=== PATIENT | male | born 1965 | race Caucasian/White ===

== ENCOUNTER 2019-08-03 14:59 | Outpatient (CLI) | payer MEDICARE, MEDICAID, SELFPAY ==
--- NOTE | ~2019-08-03 | XR_ITS ---
EXAMINATION: XR lumbar spine 2-3V DATE: 08/03/2019 15:26 INDICATION: Low back/tailbone pain post fall in May. TECHNIQUE: Anteroposterior and lateral views of the lumbar spine, and cone-down lateral view of the l umbosacral junction were obtained. COMPARISON: CT dated 12/23/2008. FINDINGS: Alignment is normal. Vertebral body heights are normal with chronic Schmorl's node at the superior en dplate of L2. No fractures identified. Mild disc height loss at T11-T12. Lumbar disc heights are norm al with minimal degenerative endplate changes at a few levels. More prominent anterior endplate osteo phyte along the superior endplate of L4. Sacrum and bilateral sacroiliac joints are normal. Unchanged contour to the sacrum and coccyx on the lateral projection. Visualized posterior lung bases are tamar r. IMPRESSION: 1. Minimal degenerative skeletal changes. No acute/subacute osseous abnormality. Reviewed, dictated and finalized at location A. 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 Minimal degenerative skeletal changes. No acute/subacute osseous abnormality .
== END 2019-08-03 15:00 | disposition home or self-care (01) ==
PROVIDERS: PCP Internal Medicine; Visit Provider Nurse Practitioner Family
DX: M54.5 Low back pain (principal)
CPT/HCPCS: 72100

== ENCOUNTER 2020-04-26 14:22 | Outpatient (CLI) | payer MEDICARE, MEDICAID, SELFPAY ==
--- NOTE | ~2020-04-26 | XR_ITS ---
EXAMINATION: XR knee RT min 4V DATE: 04/26/2020 15:06 INDICATION: Right knee pain. Fall. TECHNIQUE: 4 views of right knee were obtained. COMPARISON: None. FINDINGS: Bone alignment is normal. No fracture. There is mild tricompartmental osteoarthritis. No kn ee joint effusion. IMPRESSION: 1. Mild right knee osteoarthritis. Reviewed, dictated and finalized at location A.
== END 2020-04-26 14:23 | disposition home or self-care (01) ==
LOC: CHSIMG 14:25
PROVIDERS: PCP Internal Medicine; Visit Provider Internal Medicine
DX: M25.561 Pain in right knee (principal)
CPT/HCPCS: 73564

== ENCOUNTER 2021-03-15 11:35 | Outpatient (CLI) | payer MEDICARE, MEDICAID, SELFPAY ==
--- NOTE | ~2021-03-15 | CT_ITS ---
EXAMINATION: CT soft tissue neck wo con EXAM DATE: 03/15/2021 12:39 INDICATION: Left supraclavicular mass LT supraclavicular mass with SOB. pt allergic to contrast-leads to anaphylaxis. TECHNIQUE: Spiral CT of the neck was performed without contrast. Axial, coronal and sagittal images were reviewed. The dose-length product (DLP) for this examination was 563.71 mGy-cm. The exposure was tailored according to patient size (auto mA exposure control), and iterative reconstruction (ASIR ) was used as additional dose reduction technique. There is no prior study for comparison. FINDINGS: There is a soft tissue density left supraclavicular region measuring 2.0 x 2.8 cm, probably corresponds to the palpable abnormality. Could be solid mass such as pathologically enlarged lymph n ode, but dilation of a vein is also possible. In the right supraclavicular region there is also simil ar sized region but this appears to be connected to the venous system and is suspected more likely di lation of the vein. Recommend ultrasound of the supraclavicular regions. If there is solid mass, ultr asound-guided biopsy would be appropriate. No internal jugular chain lymphadenopathy. The thyroid gland is unremarkable. The submandibular and parotid glands are symmetric. The superior mediastinum is unremarkable. The airway is unremarkab le. Parapharyngeal and pre-glottic fat planes are preserved. Limited evaluation of cervical vesse ls on this noncontrast study. The orbits are unremarkable. Visualized sinuses and mastoid air florencia ls are well aerated. Lung apices clear. There is cervical spondylosis. IMPRESSION: Focal bilateral supraclavicular soft tissue density regions, differential diagnosis incl uding mass, pathological lymphadenopathy, focal venous dilation. Recommend ultrasound soft tissue nec k for further evaluation. Reviewed, dictated and finalized at location D. IMPRESSION: Focal bilateral supraclavicular soft tissue density regions, diffe rential diagnosis including mass, pathological lymphadenopathy, focal venous di lation. Recommend ultrasound soft tissue neck for further evaluation.
--- NOTE | ~2021-03-15 | XR_ITS ---
EXAMINATION: XR chest 2V 03/15/2021 12:40 INDICATION: Dyspnea. CHF. PROCEDURE: 2 view chest COMPARISON: Comparison to multiple prior studies sequentially, with oldest reviewed study dated 10/2009. FINDINGS: The lungs are clear. Mild cardiomegaly. There are no pleural effusions. There is no pneumo thorax suspected. IMPRESSION: 1: NO ACUTE CARDIOPULMONARY DISEASE. Reviewed, dictated and finalized at location A.
== END 2021-03-15 11:36 | disposition home or self-care (01) ==
PROVIDERS: PCP Internal Medicine; Visit Provider Internal Medicine
DX: R06.00 Dyspnea, unspecified (principal); R22.1 Localized swelling, mass and lump, neck
CPT/HCPCS: 70490; 71046

== ENCOUNTER 2021-03-16 10:12 | Outpatient (CLI) | payer MEDICARE, MEDICAID, SELFPAY | END 2021-03-16 10:13 | disposition home or self-care (01) | LOC: CHSCARD 10:14 | PROVIDERS: PCP Internal Medicine; Visit Provider Internal Medicine | DX: R22.1 Localized swelling, mass and lump, neck (principal); R06.00 Dyspnea, unspecified | CPT/HCPCS: 94060; 94726; 94729 ==

== ENCOUNTER 2021-04-02 12:26 | Outpatient (CLI) | payer MEDICARE, OTHER, SELFPAY ==
--- NOTE | ~2021-04-02 | US_ITS ---
EXAMINATION: US soft tissue head and neck DATE: 04/02/2021 13:04 INDICATION: Left supraclavicular mass on prior CT TECHNIQUE: Multiple grayscale and Doppler ultrasound images of the region of concern at the base of t he left neck and left supraclavicular region were obtained. COMPARISON: CT dated 03/15/2021 FINDINGS: There appears to be focal mild dilation of the left subclavian vein near where it crosses over the an terior first ribs with similar location and appearance as the mass of concern on the prior CT. No oth er abnormal masses or pathologically enlarged lymphadenopathy. IMPRESSION: 1. . Mild dilation of the left subclavian vein where it passes anterior to the anterior left first ri b which likely accounts for the masslike density on prior CT. No other abnormal masses, fluid collect ions or pathologically enlarged lymphadenopathy at the region of concern. Reviewed, dictated and finalized at location B. IMPRESSION: 1. . Mild dilation of the left subclavian vein where it passes anterior to the anterior left first rib which likely accounts for the masslike density on prior CT. No other abnormal masses, fluid collections or pathologically enlarged lym phadenopathy at the region of concern.
== END 2021-04-02 12:27 | disposition home or self-care (01) ==
PROVIDERS: PCP Internal Medicine; Visit Provider Internal Medicine
DX: R22.1 Localized swelling, mass and lump, neck (principal)
CPT/HCPCS: 76536

== ENCOUNTER 2021-05-11 13:36 | Outpatient (CLI) | payer OTHER, SELFPAY ==
--- NOTE | ~2021-05-11 | XR_ITS ---
MODIFIED ESOPHAGRAM HISTORY: Dysphagia. TECHNIQUE: Modified barium esophagram was performed by speech pathologist under radiologist fluorosco pic guidance. This was recorded on tape. The exam was reviewed on 05/11/2021 14:36 HAND NAILER. The DAP fo r this procedure was 2.18 Gycm2. Fluoroscopy time is 1.1 minutes. FINDINGS: Lateral projection of the cervical spine demonstrates normal alignment. There is normal s wallowing function without evidence for penetration or aspiration.. IMPRESSION: 1: Normal swallowing function without penetration or aspiration. 2: Please refer to speech pathologist report for additional detail. Reviewed, dictated and finalized at location A. NAILER
--- NOTE | 2021-05-11 14:34 | STOPEVAL ---
MODIFIED BARIUM SWALLOW EVALUATION: Thank you for referring Max Bennett to [facility] Attending Provider: Logan Lucas MD Outpatient Past Medical History Past Medical History Source of Past Medical History Patient Respiratory History Hx Chronic Obstructive Pulmonary Disease Yes (COPD) Hx Sleep Apnea Yes Hx Other Respiratory Disorders Yes: uses CPAP Gastrointestinal History Hx Other Gastrointestinal Disorders Yes: pt reports choking during the night Modified Barium Swallow Evaluation Recent Swallowing History Reports Dysphagia Yes: reports dysphagia -- chokes at night Duration of Dysphagia 6 months ago but worse in the last 4 months Other Factors Impacting Dysphagia None History of Pneumonia No Reported Difficult Consistencies Unable to Identify Intake Method Prior to Swallow Oral Evaluation Diet Prior to Swallow Evaluation Regular, Level 7 Liquid Consistency Prior to Swallow Thin (0) Evaluation Consistency Solid Consistency Other Amount cracker Method of Presentation Spoon Oral Preparatory Symptoms None Oral Phase Symptoms None Pharyngeal Phase Symptoms None Severity of Vallecular Residue None - 0% No Residue Severity of Pyriform Sinus Residue None - 0% No Residue 8 Point Laryngeal Penetration-Aspiration Material Does Not Enter Airway Scale Cervical/Esophageal Symptoms None Mixed Consistency Method of Presentation Spoon Oral Preparatory Symptoms None Oral Phase Symptoms None Pharyngeal Phase Symptoms None Severity of Vallecular Residue None - 0% No Residue Severity of Pyriform Sinus Residue None - 0% No Residue 8 Point Laryngeal Penetration-Aspiration Material Does Not Enter Airway Scale Cervical/Esophageal Symptoms None Pureed Consistency Method of Presentation Spoon Oral Preparatory Symptoms None Oral Phase Symptoms None Pharyngeal Phase Symptoms Within Functional Limits Severity of Vallecular Residue None - 0% No Residue Severity of Pyriform Sinus Residue None - 0% No Residue Pharyngeal Phase Comments trace backflow from region of UES; contents was a trace amount and did not re enter the pharynx Cervical/Esophageal Symptoms Within Functional Limits Thin Uncontrolled 1 Other Amount cup and straw Oral Preparatory Symptoms None Oral Phase Symptoms None Pharyngeal Phase Symptoms None Severity of Vallecular Residue None - 0% No Residue Severity of Pyriform Sinus Residue None - 0% No Residue 8 Point Laryngeal Penetration-Aspiration Material [place]
== END 2021-05-11 13:37 | disposition home or self-care (01) ==
LOC: ANHIMG 13:39
PROVIDERS: PCP Internal Medicine; Visit Provider Otolaryngology
DX: R13.10 Dysphagia, unspecified (principal)
CPT/HCPCS: 92611

== ENCOUNTER 2021-10-22 16:39 | Emergency (ER) | payer OTHER, SELFPAY ==
[2021-10-22 16:45] VITALS: BP 146/95; PULSE 94; RESP 18; TEMP 36.4; O2SAT 100
--- NOTE | 2021-10-22 16:48 | ED.SKABFB ---
HPI - Skin/Abscess/Foreign Bdy General Chief complaint: Skin/Abscess/Foreign Body Stated complaint: infected cyst on back Time Seen by Provider: 10/22/21 16:48 Source: patient and RN notes reviewed History of Present Illness HPI narrative: Patient is a 55-year-old male who presents the urgent care with complaints of a infected cyst on the back. Patient states that he noticed the increased pain and redness on Friday and he has been monitoring the redness. Patient denies of any nausea, vomiting, fever. Patient states that he has had the cyst for some time and they will not remove it due to his increase in blood thinners. No other acute complaints. No acute distress noted. Patient aware of the plan of care. Some parts of this dictation were generated by voice recognition software and may contain typographical and/or grammatical inaccuracies. Related Data Home Medications Medication Instructions Recorded Confirmed apixaban 5 mg tablet 5 mg PO BID 04/23/21 10/22/21 buspirone 10 mg tablet 10 mg PO BID 04/23/21 10/22/21 diltiazem HCl 240 mg 240 mg PO DAILY 04/23/21 10/22/21 capsule,extended release 24 hr, controlled duloxetine 30 mg capsule,delayed 30 mg PO BID 04/23/21 10/22/21 release fluticasone 250 mcg-salmeterol 50 1 inh INHALATION BID 04/23/21 10/22/21 mcg/dose blistr powdr for inhalation losartan 25 mg tablet 25 mg PO DAILY 04/23/21 10/22/21 metoprolol succinate 100 mg 100 mg PO BID 04/23/21 10/22/21 tablet,extended release 24 hr montelukast 10 mg tablet 10 mg PO DAILY 04/23/21 10/22/21 omeprazole 40 mg capsule,delayed 40 mg PO DAILY 04/23/21 10/22/21 release tamsulosin 0.4 mg PO DAILY 10/22/21 10/22/21 Allergies Allergy/AdvReac Type Severity Reaction Status Date / Time iodine Allergy Unknown Anaphylaxis Verified 10/22/21 16:50 amoxicillin AdvReac Other Verified 10/22/21 16:51 Review of Systems Review of Systems: CONSTITUTIONAL: Denies fever, chills, or sweats. EYES: Denies visual changes, redness, or discharge. ENT: Denies rhinorrhea, congestion, sore throat, or otalgia. CARDIOVASCULAR: Denies chest pain, palpitations, or edema. RESPIRATORY: Denies cough or dyspnea. GASTROINTESTINAL: Denies abdominal pain, nausea, vomiting, or diarrhea. GENITOURINARY: Denies dysuria or hematuria. SKIN: Reports of an infected cyst on the back MUSCULOSKELETAL: Denies back pain, joint pain, or myalgia. NEUROLOGIC: Denies headache, numbness, or weakness. All other systems reviewed are negative, except as documented in HPI. [facility] Family History Family History Father Skin cancer Mother Bone cancer Social History Social History (System 05/11/21 @ 15:06 by Shelia Black) Smoking status: Never smoker Alcohol intake: never Substance use: never Substance use type: does not use Comments At the time of my signature, I reviewed and agree with the nursing past medical, surgical, social, and family history. There is no relevant family history pertinent to the patient complaint. Exam Narrative: GENERAL: This is a well-nourished, well-developed patient, in no apparent distress. HEAD: normocephalic, atraumatic. EYES: PERRL. Sclera clear/white. Vision is grossly intact. EARS: External ears normal NOSE: External nose normal with no obvious nasal discharge, nares without redness, no rhinorrhea. THROAT: Mucous membranes moist NECK: Neck supple CARDIOVASCULAR: Atrial fibrillation SKIN: 7 x 7 firm deep sebaceous cyst with a 4 x 5 cm erythemic firm center. Nonraised off the center upper back. NEURO: awake, alert, and oriented to person, place and time. There were no obvious focal neurologic abnormalities. EXTREMITIES: No clubbing, cyanosis, or edema. Course Course Level of Care: Express Care Visit Vital Signs Vital signs: Vital Signs Temperature 97.5 F L 10/22/21 16:45 Pulse Rate 94 10/22/21 16:45 Respiratory Rate 18 10/22/21 16:45 Blood
== END 2021-10-22 17:00 | disposition home or self-care (01) ==
PROVIDERS: Emergency Provider Nurse Practitioner Family
DX: L02.212 Cutaneous abscess of back [any part, except buttock and flank] (principal); I48.91 Unspecified atrial fibrillation; J44.9 Chronic obstructive pulmonary disease, unspecified; G47.30 Sleep apnea, unspecified
CPT/HCPCS: 99213; G0463

== ENCOUNTER 2022-05-24 14:07 | Emergency (ER) | payer MEDICARE, MEDICAID, SELFPAY ==
--- NOTE | 2022-05-24 14:40 | ED.URI ---
HPI - URI/Sore Throat General Chief Complaint: Upper Respiratory Infection Stated Complaint: Chest Congestion/Dizziness Time Seen by Provider: 05/24/22 15:00 Source: patient Mode of arrival: ambulatory Limitations: no limitations History of Present Illness HPI Narrative: Mr. Bennett is a 56-year-old male patient presenting to clinic today with complaints of chest congestion,cough, nausea, vomiting, body aches since Friday. He reports He has not vomited for 2 days however he has had some head congestion. MD elicited complaint: sore throat and nasal congestion Related Data Home Medications Medication Instructions Recorded Confirmed apixaban 5 mg tablet (Eliquis) 5 mg PO BID 04/23/21 05/24/22 buspirone 10 mg tablet 10 mg PO BID 04/23/21 05/24/22 diltiazem HCl 240 mg 240 mg PO DAILY 04/23/21 05/24/22 capsule,extended release 24 hr, controlled duloxetine 30 mg capsule,delayed 30 mg PO BID 04/23/21 05/24/22 release fluticasone 250 mcg-salmeterol 50 1 inh inhalation BID 04/23/21 05/24/22 mcg/dose blistr powdr for inhalation (Advair Diskus) losartan 25 mg tablet 25 mg PO DAILY 04/23/21 05/24/22 metoprolol succinate 100 mg 100 mg PO BID 04/23/21 05/24/22 tablet,extended release 24 hr montelukast 10 mg tablet 10 mg PO DAILY 04/23/21 05/24/22 omeprazole 40 mg capsule,delayed 40 mg PO DAILY 04/23/21 05/24/22 release tamsulosin 0.4 mg capsule 0.4 mg PO DAILY 10/22/21 05/24/22 Allergies Allergy/AdvReac Type Severity Reaction Status Date / Time iodine Allergy Unknown Anaphylaxis Verified 05/24/22 14:51 amoxicillin AdvReac Other Verified 05/24/22 14:51 Review of Systems Review of Systems: Pertinent positives per HPI. Patient denies any fever, chills, rash, visual changes, dizziness,shortness of breath, chest pain, palpitations, diarrhea, constipation, abdominal pain, or any urinary issues. [facility] Family History Family History Father Skin cancer Mother Bone cancer Social History Social History Smoking status: Never smoker Alcohol intake: never Substance use: never Substance use type: does not use Comments At the time of my signature, I reviewed and agree with the nursing past medical, surgical, social, and family history. There is no relevant family history pertinent to the patient complaint. Exam Narrative: General: Well-developed, obese, in no apparent distress Head: Normocephalic, atraumatic Eyes: Pupils equally round and reactive to light bilaterally, EOM intact, sclera and conjunctive clear, no discharge, lids normal Ears: TMs intact and clear, ear canals clear, no drainage, grossly hearing normal. Nose: Nares patent, clear nasal discharge, no inflammation, no sinus tenderness. Mouth: Oral pharynx without lesions or masses, good dentition, MMM. oropharynx red Neck: Supple, trachea midline, no enlargement of anterior or posterior cervical nodes, no thyroid masses or goiter palpable. Cardio: Regular rate and rhythm, s1 and s2 normal, no murmur appreciated. Resp: faint expiratory wheeze in the right lower lung field otherwise clear, no rhonchi, rales, wheezing or rubs Course Course Emergency Course: Portions of this record may have been created with voice recognition software. Level of Care: Express Care Visit Vital Signs Vital signs: Vital Signs Temperature 36.8 C 05/24/22 14:54 Pulse Rate 113 H 05/24/22 14:54 Respiratory Rate 20 05/24/22 14:54 Blood Pressure 87/58 L 05/24/22 14:54 Pulse Oximetry 98 05/24/22 14:54 Oxygen Delivery Room Air 05/24/22 14:54 Temperature 36.8 C 05/24/22 14:54 Pulse Rate 113 H 05/24/22 14:54 Respiratory Rate 20 05/24/22 14:54 Blood Pressure 90/50 L 05/24/22 15:32 Pulse Oximetry 98 05/24/22 14:54 Oxygen Delivery Room Air 05/24/22 14:54 Vital signs reviewed MDM - URI/Sore Thro
[2022-05-24 14:54] VITALS: BP 87/58; PULSE 113; RESP 20; TEMP 36.8; O2SAT 98
--- NOTE | 2022-05-24 15:19 | ECG_ITS ---
Measurements Intervals [place] Rate: 79 P: GA: 0 QRS: 6 QRSD: 97 T: 19 QT: 378 QTc: 434 Interpretive Statements ATRIAL FIBRILLATION BASELINE ARTIFACT- I, II, III, AVR, AVL, AVF ABNORMAL ECG NO PREVIOUS ECG AVAILABLE FOR COMPARISON Electronically Signed On 05-24-2022 16:05:25 SHIFT SUPERVISOR MELTING by Ross Jalloh D.O.
[2022-05-24 15:32] VITALS: BP 90/50
== END 2022-05-24 16:20 | disposition home or self-care (01) ==
PROVIDERS: Emergency Provider Nurse Practitioner Family
DX: J10.1 Influenza due to other identified influenza virus with other respiratory manifestations (principal); E86.0 Dehydration; I95.9 Hypotension, unspecified; Z20.822 Contact with and (suspected) exposure to COVID-19
CPT/HCPCS: 87426; 87804; 93005; 99213; C9803; G0463

== ENCOUNTER 2022-11-06 17:00 | Outpatient (CLI) | payer MEDICARE, MEDICAID, SELFPAY ==
--- NOTE | ~2022-11-06 | XR_ITS ---
EXAMINATION: XR chest 2V Exam Date/Time: 11/06/2022 17:10 CDT HISTORY: dyspnea AND RIGHT SIDE CP X 4 DAYS Comparison: 03/15/2021. RESULT: Lines, tubes, and devices: None. Lungs and pleura: Minimal bibasilar scar/atelectasis, otherwise clear. Cardiomediastinal silhouette: Stable. Other: No acute osseous or upper abdominal finding. IMPRESSION: No acute cardiopulmonary process. Reviewed, dictated and finalized at location K.
[2022-11-06 17:31] LABS: Basophils Absolute Auto 0.07 K/mm3 (0.00-0.10); Basophils Percent Auto 0.8 % (0.0-1.0); Eosinophils Absolute Auto 0.11 K/mm3 (0.02-0.50); Eosinophils Percent Auto 1.3 % (1.0-6.0); Hematocrit 45.2 % (40.0-54.0); Hemoglobin 14.9 g/dL (14.0-18.0); Immature Granulocyte Absolute 0.05 K/mm3 (0.00-0.00); Immature Granulocyte Percent A 0.6 % (0.0-0.0); Lymphocytes Absolute Auto 4.16 K/mm3 (1.10-4.50); Lymphocytes Percent Auto 47.6 % (18.0-42.0); Mean Corpuscular Hemoglobin 29.6 pg (27.0-31.0); Mean Corpuscular Volume 89.7 fL (78.0-102.0); Mean Platelet Volume 12.1 fl (8.7-11.0); Monocytes Absolute Auto 0.66 K/mm3 (0.10-0.90); Monocytes Percent Auto 7.6 % (2.0-11.0); Neutrophils Absolute Auto 3.7 K/mm3 (1.7-7.2); Neutrophils Percent Auto 42.1 % (50.0-70.0); Platelet Count Result 217 K/mm3 (150-420); Red Blood Count 5.04 M/mm3 (4.70-6.10); Red Cell Distribution Width 13.2 % (11.6-14.4); White Blood Count 8.7 K/mm3 (4.8-10.8)
[2022-11-06 17:44] LABS: D Dimer 0.19 mg/L (0.19-0.50)
[2022-11-06 18:28] LABS: Alanine Aminotransferase 26 U/L (16-63); Albumin Level 3.7 g/dL (3.4-5.0); Alkaline Phosphatase 98 U/L (46-116); Anion Gap 9 mmol/L (8-16); Aspartate Amino Transferase 13 U/L (15-37); Bilirubin,Total 0.6 mg/dL (0.00-1.00); Blood Urea Nitrogen 13 mg/dL (7-18); Calcium 9.1 mg/dL (8.5-10.1); Carbon Dioxide 29 mmol/L (21-32); Chloride 104 mmol/L (98-108); Creatine Kinase 61 U/L (39-308); Estimated Glomerular Filt Rate 58; Glucose 161 mg/dL (70-99); Osmolality Calculated 297 mOsm/kg (285-295); Potassium 4.3 mmol/L (3.5-5.1); Sodium 142 mmol/L (136-145); Troponin I 4.4 ng/L (0.00-60.4)
== END 2022-11-06 17:01 | disposition home or self-care (01) ==
LOC: CHSIMG 17:02
PROVIDERS: PCP Internal Medicine; Visit Provider Internal Medicine
DX: R06.00 Dyspnea, unspecified (principal); R07.9 Chest pain, unspecified
CPT/HCPCS: 36415; 71046; 80053; 82550; 82553; 84484; 85025; 85380

== ENCOUNTER 2023-01-17 10:45 | Outpatient (CLI) | payer MEDICARE, MEDICAID, SELFPAY ==
--- NOTE | ~2023-01-17 | CT_ITS ---
CT Scan of the Chest without Contrast: Clinical Indication: Lung cancer screening, personal history of nicotine dependence Technique: Contiguous sections were acquired throughout the chest without intravenous contrast. Dose reduction technique was used on this scan by utilizing automated exposure control and iterative recon struction technique. The dose-length product (DLP) was 664.01 mGy-cm. Findings: There is no evidence of any significant mediastinal, hilar or axillary lymphadenopathy. The mediastin al soft tissues appear normal. There is no evidence of pleural or pericardial effusion. Calcified right lower lobe granuloma present. No other pulmonary nodule identified.. Images through the upper abdomen reveal no abnormalities. Impression: Lung RADS 2: Benign appearance. 12 month follow-up screening CT advised. Reviewed, dictated and finalized at [facility]. Impression: Lung RADS 2: Benign appearance. 12 month follow-up screening CT advised.
== END 2023-01-17 10:46 | disposition home or self-care (01) ==
PROVIDERS: PCP Internal Medicine; Visit Provider Internal Medicine Pulmonary Disease
DX: Z12.2 Encounter for screening for malignant neoplasm of respiratory organs (principal); Z87.891 Personal history of nicotine dependence
CPT/HCPCS: 71271

== ENCOUNTER 2023-01-28 16:16 | Outpatient (CLI) | payer MEDICARE, MEDICAID, SELFPAY ==
--- NOTE | ~2023-01-28 | XR_ITS ---
EXAM: XR knee LT 3V DATE: 01/28/2023 16:32 HISTORY: left knee pain X 20 YEARS/NO TRAUMA . COMPARISON: 09/17/2013. FINDINGS: Normal mineralization. No fracture or dislocation. No lytic or blastic lesion. Severe medi al joint space narrowing. Moderate medial and lateral and mild neural foraminal compartment osteophyt osis. No erosion or periosteal change. Soft tissue varicosities. IMPRESSION: Tricompartmental left knee osteoarthritis, severe in the medial compartment. Reviewed, dictated and finalized at location K. IMPRESSION: Tricompartmental left knee osteoarthritis, severe in the medial com partment.
== END 2023-01-28 16:17 | disposition home or self-care (01) ==
PROVIDERS: PCP Internal Medicine; Visit Provider Internal Medicine
DX: M25.562 Pain in left knee (principal); M17.12 Unilateral primary osteoarthritis, left knee
CPT/HCPCS: 73562

== ENCOUNTER 2023-03-05 14:28 | Outpatient (CLI) | payer MEDICARE, MEDICAID, SELFPAY ==
[2023-03-05 14:30] VITALS: PULSE 85; O2SAT 96
[2023-03-05 14:35] VITALS: PULSE 99; O2SAT 96
[2023-03-05 14:45] VITALS: PULSE 89; O2SAT 97
--- NOTE | 2023-03-05 14:53 | HOMEO2EVAL ---
Evaluation was performed at [facility] Home Oxygen Evaluation RC: Home Oxygen (O2) Evaluation Start: 03/05/23 14:52 Freq: Status: Active Protocol: RPE Activity Type Activity Date Activity User E-sign Co-sign Detail Recorded Client Recorded Date Recorded By Document 03/05/23 14:30 DJO [email or web address] 03/05/23 14:53 DJO Document 03/05/23 14:35 [email or web address] [email or web address] 03/05/23 14:53 DJO Document 03/05/23 14:45 [email or web address] [email or web address] 03/05/23 14:53 DJO 03/05/23 03/05/23 03/05/23 14:30 14:35 14:45 Home O2 Evaluation [Oxygen] -Test Phase Resting Exercise Resting -Oxygen Delivery Room Air Room Air Room Air [Pulse Oximetry] -Pulse Oximetry (90-100 %) 96 96 97 [Pulse Rate] -Pulse Rate (60-100 beats/min) 85 99 89 [Evaluation] -Activity Tolerance Good [Charges] -Treatment Charges O2 Evaluation - Outpatient
--- NOTE | 2023-03-06 09:19 | WPDPFTINT ---
PFT Procedure Performed PFT Procedure Performed Spirometry with Pre/Post Bronchodilator Plethysmography (Lung Vol) Diffusing Cap (DLCO) Flow Vol Loop PFT Interpretation Lung volumes were measured with the body plethysmography. The diminished total lung capacity is indicative of a restrictive respiratory disease. Spirometry showed diminished expiratory flow rates and a diminished FEV1 to FVC ratio 59%, indicative of obstructive airway disease. Following administration of a bronchodilator there was no significant increase in expiratory flow rates. Lung diffusion capacity is within the normal range at 90% predicted. The flow-volume loop is consistent with obstructive airway disease. Impression: Combined restrictive respiratory and obstructive airway disease with no response to bronchodilators on this testing. Lung diffusion capacity within the normal range.
== END 2023-03-05 14:29 | disposition home or self-care (01) ==
LOC: ANHPFT 14:30
PROVIDERS: PCP Internal Medicine; Visit Provider Internal Medicine Pulmonary Disease
DX: J44.9 Chronic obstructive pulmonary disease, unspecified (principal); R94.2 Abnormal results of pulmonary function studies
CPT/HCPCS: 94060; 94618; 94726; 94729

== ENCOUNTER 2024-02-16 14:00 | Outpatient (RCR) | payer MEDICARE, MEDICAID, SELFPAY ==
--- NOTE | 2023-12-04 11:53 | WPDSLSEVAL ---
[facility] HPI HPI Referral Source PCP Visit Attended By patient and staff History Obtained From patient Chief Complaint depression and anxiety History of Present Illness This is a 58-year-old white male with a long history of depression, currently being treated by his PCP, Dr. Atkins, who has him on Cymbalta 30 mg b.i.d. and BuSpar 15 mg b.i.d., both of which he has been on for a few years. Patient has never seen a psychiatrist. 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 There have been times when she has been severely cognitively impaired, but he states that this is somewhat improved. However she is unable to walk and he has to assist her with basic tasks such as bathing and toileting. He reports depressed and anxious mood, loss of interest in things, low energy, low self-esteem, difficulty concentrating, hopelessness, passive suicidal ideations but no active intent or plan. He does have a history of suicide attempt in 1993. Also he has sleep apnea, and sleeps well with CPAP. Denies terrie, but does admit to occasionally feeling somewhat paranoid when he is driving, and often makes erratic turns if he thinks they are following him. This is not happened for some time. He also denies homicidal ideations. He says in the past he thought that the government was tracking him in some way, but denies that this is currently the case. HPI: Quality & Associated Signs and Symptoms hopelessness/helpless, anxiety/panic attacks, low motivation, overwhelmed, worthlessness, low energy, suicidal/self-harm thoughts and negative thoughts Evaluation of Sleep restlessness Past History Psychosocial Hx: Patient grew up in [place]. He denies any history of abuse or neglect, but said his family was poor. Overall he feels he had a good childhood. 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 He had to go on disability 2010 due to persistent atrial fibrillation. 25 years, no children. Substance Use Hx: Currently denies any alcohol use for the past 25 years, although a note from PCP 1 week ago says that he admits to drinking about a six-pack a week. Used to drink heavily in the past, around 25-30 years ago.Used to smoke, stopped smoking about 15 years ago, smoked for 15 years. Denies current marijuana use. Denies illicit drug use. Past Medical Hx: Morbid obesity, chronic atrial fibrillation, congestive heart failure, cardiomyopathy, osteoarthritis, chronic pain, MARTIN, history of bladder cancer, dyslipidemia, gout, GERD, type 2 diabetes, COPD, herpes zoster, erectile dysfunction, colon polyps, hypertension, chronic anticoagulation Past Surgical Hx: left inguinal hernia repair x3, left ankle ORIF Past Psych Hx: as per HPI. Patient had a suicide attempt by alcohol in the early 90s. Father had Parkinson's, but no other family history of psychiatric illness. Review of Systems Review of Systems Constitutional Reports fatigue ( Morbid obesity, dyslipidemia, arc-jqqdahu-ibarvtkeq diabetes mellitus) Eyes Reports WNL ENT Reports WNL Respiratory Reports other ( COPD, MARTIN) Cardiovascular Reports other ( CHF, cardiomyopathy, atrial fibrillation, HTN, chronic anticoagulation) Gastrointestinal Reports other ( GERD) Musculoskeletal Reports abnormal gait and Reports other ( osteoarthritis, chronic pain) Neurologic Reports WNL Skin Reports WNL ADL's Reports independent Exam Physical Exam Review of Lab Studies n/a Hygiene poor and disheveled General Behavior/Attitude Toward Examiner pleasant and cooperative Pain Yes Pain Location generalized Pain Characteristics chronic Psychiatric Exam
--- NOTE | 2023-12-04 14:13 | PC.NURSE ---
Called [facility] in [place] and spoke to Dexter to increase the patient's Duloxetine to 90mg PO daily.
[2023-12-09 10:04] VITALS: BP 116/88; PULSE 82; RESP 20; TEMP 37; O2SAT 97
[2023-12-10 10:10] VITALS: BP 136/88; PULSE 82; RESP 20; TEMP 36.9; O2SAT 97
[2023-12-15 10:10] VITALS: BP 123/78; PULSE 88; RESP 20; TEMP 37.1; O2SAT 97
--- NOTE | 2023-12-18 08:21 | SLSTHERAPY ---
12/18/2023 Phone call received from Max canceling 12/18/2023 group attendance due to cat's ; Max is scheduled to return to group 12/23/2023. 8:22
--- NOTE | 2023-12-22 09:29 | SLSTHERAPY ---
12/22/2023 Phone call received from Max canceling 12/21 & 12/25 2023 group attendance due to illness; Max is scheduled to return to group 12/29/2023. 9:31
--- NOTE | 2023-12-30 09:13 | SLSTHERAPY ---
12/30/2023 Phone call received from Max cancelling group attendance for 12/29 & 12/31/2023 due to illness; Max is scheduled to return to group 01/05/2024. 9:14
--- NOTE | 2024-01-05 09:23 | SLSTHERAPY ---
01/05/2024 Phone call received from Max canceling 01/05/2024 due to illness; Max reminded of 01/08/2024 [facility] doctor appointment; he confirmed intent to attend. 9:25
[2024-01-08 10:09] VITALS: BP 130/88; PULSE 84; RESP 20; TEMP 36.7; O2SAT 98
--- NOTE | 2024-01-08 10:10 | PC.NURSE ---
No nursing group due to MD visit.
--- NOTE | 2024-01-08 12:19 | WPDSLSPROGRE ---
Progress HPI Progress HPI Visit Attended By patient and staff History Obtained From patient Chief Complaint follow-up from admission HPI this is a 5 week follow-up from admission. Patient has missed appointments and group sessions due to the fact that he had COVID and is recovering. At our last visit we increased his Cymbalta to 90 mg a day in divided doses and he feels that this is helped considerably with mood, as well as pain. 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 States that all depressive and anxiety symptoms have improved. Still has difficulty getting to sleep. Patient has MARTIN and sleeps well generally with CPAP. Also on BuSpar 15 mg b.i.d.. Average Number of Hours of Sleep 7 Sleep Quality difficulty falling asleep Change in [facility] Releveant to Presenting Illness Yes Describe Changes in PMFSH improvement in pain, depressive and anxiety symptoms as above Review of Systems Review of Systems Constitutional Reports fatigue and other ( morbid obesity, dyslipidemia, oqk-ughlpcn-vydnawetd diabetes mellitus ) Eyes Reports WNL ENT Reports WNL Respiratory Reports other ( COPD, MARTIN, recent COVID infection) Cardiovascular Reports other ( CHF, cardiomyopathy, atrial fibrillation, HTN, chronic anticoagulation) Gastrointestinal Reports other ( GERD) Musculoskeletal Reports abnormal gait and Reports other ( osteoarthritis, chronic pain) Neurologic Reports WNL Skin Reports WNL ADL's Reports WNL and Reports independent Exam Physical Exam Review of Lab Studies n/a Hygiene adequate and disheveled General Behavior/Attitude Toward Examiner pleasant and cooperative Pain Yes Pain Location generalized, improved Pain Characteristics chronic and aching Psychiatric Exam Level of Consciousness alert Orientation person, place, time and situation Speech normal rate/tone/volume/prosody and coherent Language able to comprehend questions Mood less depressed/anxious Affect full range, appropriate and congruent Thought Processes/Form logical, linear and goal directed Thought Content diminished depressive and anxiety s Delusions none Homicidal/Assaultive Ideation none Suicidal Ideation none Hallucinations none Attention/Concentration focused Attention/Concentration Testing Methods observation/interview Short Term Memory Impairment none STM Testing Methods clinical interview (assessment/observation) Cooker Sulfite Memory Impairment none LTM Testing Methods recall of biographical information Intellectual Functioning roughly average Intellectual Functioning Assessed By current events Insight fair and improving Insight Assessed By ability to recognize & acknowledge mental illness, ability to understand the implications of mental illness, understanding of treatment options and ability to comply with treatment Judgement fair and improving Judgement Assessed By exploring recent decision-making MMSE n/a Patient Assets patient is willing to accept treatment, able to perform ADLs Patient Liabilities morbid obesity, chronic pain, poor hygiene, caregiver stress Assessment and Plan Clinical Impression/Diag Clinical Impression/Diagnosis F 33.2, improved, monitor meds, continue IOP Progress Overview Reason for Continued Services in an Intensive Outpatient Program continued impaired mood and.or depression, patient would decompenste at a lower level of care, not at baseline level of functioning and high risk for relapse Treatment To Be Provided medication management and group/individual/rec therapy Discharge Disposition/Level of Care PCP Anticipated Discharge 8-12 weeks Certification Statement Certification Statement I believe this patient requires the services of the Intensive Outpatient Program
[2024-01-12 10:01] VITALS: BP 135/88; PULSE 88; RESP 20; TEMP 36.4; O2SAT 98
--- NOTE | 2024-01-12 10:17 | PC.NURSE ---
No nursing group due nurse meeting.
--- NOTE | 2024-01-14 08:30 | SLSTHERAPY ---
01/14/2024 Phone call received from Max canceling 01/14/2024 group attendance due to illness; Max is scheduled to return to group 01/20/2024. 8:31
--- NOTE | 2024-01-20 08:08 | SLSTHERAPY ---
01/20/2024 Phone call received from Jaylene canceling 01/19 & 01/22/2024 group attendance due to 's illness; Max is scheduled to return to group 01/26/2024. 8:09
--- NOTE | 2024-01-26 08:09 | PC.NURSE ---
The patient called and reported he was unable to attend his scheduled sessions this week due to not having anyone to sit with his .
[2024-02-02 10:03] VITALS: BP 123/84; PULSE 88; RESP 20; TEMP 36.3; O2SAT 97
--- NOTE | 2024-02-05 08:15 | SLSTHERAPY ---
02/05/2024 8:16 Phone call received from Max canceling attendance for 02/05/2024 group sessions & SLS doctor appointments; Max is scheduled to return to group 02/09/2024 & confirms intent to attend.
--- NOTE | 2024-02-09 08:29 | SLSTHERAPY ---
02/09/2024 Phone call received from Max canceling 02/09/2024 group attendance due to need to stay home to provide care for ; reminded Max of SLS doctor appointment scheduled for 02/12/2024 & the importance of attending it; he confirmed intent to attend appointment with doctor that day but reported inability to participate in groups; Max scheduled to return ro group 02/16/2024. 8:32
--- NOTE | 2024-02-12 12:15 | WPDSLSPROGRE ---
Progress HPI Progress HPI Visit Attended By patient and staff History Obtained From patient Chief Complaint Follow-up for depression HPI this is a follow-up for depression. Patient has not been seen for 5 weeks as he has had to take care of his , who has dementia and is bed ridden. Up until now, patient have been able to come to group with family sitting with her while he is away, but they have had to go back to work and patient has not been able to leave her alone for very long. He is asking about doing 1 hour a week in individual therapy instead of group. Continues on BuSpar 15 mg b.i.d. and Cymbalta 90 mg q.day. the Cymbalta has helped with mood, but he is still in considerable pain, and reports only slight benefit for this. He is asking about other pain medications and I referred him to his primary care doctor to discuss this. Has MARTIN, sleeps fairly well with CPAP. he is essentially fully recovered from COVID, but he said for a while he was experiencing brain fog as result of this. Average Number of Hours of Sleep 7 Sleep Quality difficulty falling asleep Change in [facility] Releveant to Presenting Illness Yes Describe Changes in [facility] caregiver issues Review of Systems Review of Systems Constitutional Reports fatigue and other ( morbid obesity, gpp-kvyzcmv-mbsasqjkd diabetes mellitus) Eyes Reports WNL ENT Reports WNL Respiratory Reports other ( COPD, MARTIN, recent COVID infection) Cardiovascular Reports other ( CHF, hypertension) Gastrointestinal Reports other ( GERD) Musculoskeletal Reports abnormal gait and Reports other ( chronic pain, osteoarthritis) Neurologic Reports WNL Skin Reports WNL ADL's Reports WNL and Reports independent Exam Physical Exam Review of Lab Studies n/a Hygiene adequate General Behavior/Attitude Toward Examiner pleasant and cooperative Pain Yes Pain Location generalized Pain Characteristics chronic and aching Psychiatric Exam Level of Consciousness alert Orientation person, place, time and situation Speech normal rate/tone/volume/prosody and coherent Language able to comprehend questions Mood less depressed Affect full range, appropriate and congruent Thought Processes/Form logical, linear and goal directed Thought Content diminished depressive symptoms Delusions none Homicidal/Assaultive Ideation none Suicidal Ideation none Hallucinations none Attention/Concentration focused Attention/Concentration Testing Methods observation/interview Short Term Memory Impairment none STM Testing Methods clinical interview (assessment/observation) Elder Counselor Memory Impairment none LTM Testing Methods recall of biographical information Intellectual Functioning roughly average Intellectual Functioning Assessed By fund of knowledge and current events Insight improving Insight Assessed By ability to recognize & acknowledge mental illness, ability to understand the implications of mental illness, understanding of treatment options and ability to comply with treatment Judgement fair and improving Judgement Assessed By exploring recent decision-making and exploring solutions to hyothetical situations/practical dilemmas MMSE n/a Patient Assets patient is willing to accept treatment Patient Liabilities morbid obesity, chronic pain, caregiver stress Assessment and Plan Clinical Impression/Diag Clinical Impression/Diagnosis F 33.2, progressing well, but still reports significant pain. Will increase Cymbalta to 120 mg q.day and refer to PCP for pain management Progress Overview Reason for Continued Services in an Intensive Outpatient Program continued impaired mood and.or depression, patient would decompenste at a lower level of care, not at baseline level of functioning and high risk for relapse Treatment To Be Prov
--- NOTE | 2024-02-12 13:10 | PC.NURSE ---
This nurse called and spoke with Federica at [facility] and ordered the patient's Duloxetine 120mg PO Daily X 30 days.
[2024-02-16 14:02] VITALS: BP 127/75; PULSE 85; RESP 18; TEMP 36.6; O2SAT 97
--- NOTE | 2024-02-25 12:42 | SLSTHERAPY ---
02/25/2024 Phone call received from Max ellis 02/25/2024 13:45 session due to excessive heat; appointment rescheduled for 03/03/2024. 12:43
--- NOTE | 2024-03-03 14:36 | SLSTHERAPY ---
03/03/2024 Phone call to Max following no-show for 13:45 individual session; confirmed upcoming appointments with Max: 03/09/2024 individual therapy & 03/11/2024 [facility] doctor appointment. 14:38
--- NOTE | 2024-03-08 13:37 | SLSTHERAPY ---
03/08/2023 Phone call received from Max canceling 03/08/2023 13:45 individual session; Max confirmed attendance for 03/11/2024 [facility] doctor appointment. 13:38
--- NOTE | 2024-03-15 07:52 | SLSTHERAPY ---
03/15/2024 Max no-showed/no-called for SLS doctor appointment 03/11/2024.
--- NOTE | 2024-03-25 11:53 | P.DS_ITS ---
Discharge Summary Mental Status Mental status on D/C unknown. I did not see patient on the day of D/C. Reason for Admission the patient is a 58-year-old white male that presented for admission to [facility] on 12/04/2023 for treatment of depression and anxiety . 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 He reported at the time of admission to have depressed and anxious mood, loss of interest in things, low energy, low self-esteem, difficulty concentrating, hopelessness, passive suicidal ideations but no active intent or plan. He does have history of suicide attempt in 1993. Treatment Plan Utilization/Treatment Supportive/cognitive therapy utilized. Medications were continued. Provided Education on many subjects including safety, nutrition, overall general health, falls, coping skills, grief, behavior activation, self-care, communication, boundaries, benefits of exercising, organization, exercise, among others. On 12/04/2023 his Cymbalta was increased from 60 mg to 90 mg q.day and on 02/12/2024 this was increased to 120 mg q.day. Response to [place]/Treatment Course Summary patient's mood and pain improved with increase in Cymbalta. Attended 8 scheduled sessions, and was 1st admitted to the program when his was in the custodial, but she was discharged sooner than expected. The patient attempted to continue coming to the program, but was unable to leave his for long periods of time so he was switched to individual sessions. He attended 1 individual session before he was unable to return due to medical concerns with his , financial constraints, and legal problems with his housing. Aftercare Plan Continue current medications. Follow up with PCP p.r.n.. Continue all activities as tolerated. The patient is living at home and will continue to do so. Discharge Diagnosis F 33.2
== END 2024-03-25 14:16 | disposition home or self-care (01) ==
LOC: CHSSENLIFE 14:00
PROVIDERS: PCP Internal Medicine; Visit Provider Psychiatry & Neurology Psychiatry
DX: F33.2 Major depressive disorder, recurrent severe without psychotic features (principal)
CPT/HCPCS: 90792; 90837; 90853; 99213; 99214; G0463

== ENCOUNTER 2024-07-08 10:00 | Outpatient (RCR) | payer MEDICARE, MEDICAID, SELFPAY ==
--- NOTE | 2024-04-15 12:56 | WPDSLSPROGRE ---
Progress HPI Progress HPI Visit Attended By patient and staff History Obtained From patient Chief Complaint depression, anxiety HPI this is a 58-year-old white male long history of depression, who was previously admitted to the program on 12/04/2023, but had to be abruptly discharged on 03/25/2024 due to the fact that his , who he had been caring for in their home, had to going to the skilled nursing. She has dementia and is no longer able to walk or transfer independently. She is currently in the skilled nursing until their current APS case is resolved and their home is deemed habitable again. Patient is exhibiting hoarding behavior, and it sounds like that the house at the present time is almost unlivable. He currently endorses symptoms procrastination, hopelessness, chronic pain, anxiety, depression, decreased interest in activities, pain insomnia, restlessness, fatigue, worthlessness, guilt, decreased energy, poor concentration, racing thoughts, over eating, panic attacks, chest pain, muscle tension, poor hygiene, tearfulness, caregiver stress, loneliness, paranoia, and passive suicidal ideation. He denies any active thoughts or plans. Denies homicidal ideations, or terrie. He is currently on Cymbalta 120 mg q.day, which was increased by myself when he was here previously, and BuSpar 15 mg b.i.d.. He says that both of these are essentially not working now and is asking about other options. He is morbidly obese with severe chronic pain, which is partially driving the depression as well. Average Number of Hours of Sleep 4 Sleep Quality difficulty falling asleep, frequent awakening, early awakening and restlessness Change in [facility] Releveant to Presenting Illness Yes Describe Changes in [facility] admitted to skilled nursing as per HPI. Review of Systems Review of Systems Constitutional Reports fatigue and other ( Morbid obesity, vvy-serqnra-mabcwtlgy diabetes mellitus) Eyes Reports WNL ENT Reports WNL Respiratory Reports other ( MARTIN, COPD) Cardiovascular Reports other ( CHF, cardiomyopathy, atrial fibrillation, HTN, chronic anticoagulation) Gastrointestinal Reports other ( GERD) Musculoskeletal Reports abnormal gait, Reports muscle stiffness and Reports other ( osteoarthritis, chronic pain) Neurologic Reports WNL Skin Reports WNL ADL's Reports WNL and Reports independent Exam Physical Exam Review of Lab Studies yes Hygiene poor General Behavior/Attitude Toward Examiner pleasant and cooperative Pain Yes Pain Location generalized Assessment and Plan Certification Statement Certification Statement I believe this patient requires the services of the Intensive Outpatient Program and that there is reasonable expectation that the patient will make timely and significant practical improvement in the presenting acute symptoms as a result of this Intensive Outpatient Program. I do not believe this patient will benefit from a lesser level of care or could be adequately and appropriately treated in a less restrictive environment. My decision is based on the preceding clinical information.
--- NOTE | 2024-04-15 13:16 | WPDSLSEVAL ---
[facility] HPI Referral Source self Visit Attended By patient and staff History Obtained From patient Chief Complaint depressive and anxiety symptoms History of Present Illness 58-year-old white male with a long history of depression, previously admitted to [facility] on , abruptly discharged on 03/25/2024 due to the fact that his , who has dementia and whom he was the primary caregiver for, was admitted to the group home due to the fact that their current APS case requires that the home be habitable again if is to return. As it turns out patient exhibits hoarding behavior, and it sounds like that home was essentially unlivable. He currently endorses symptoms procrastination, hopelessness, chronic pain, anxiety, depression, decreased interest in things, tomas insomnia, fatigue, restlessness, worthlessness, guilt, decreased energy, poor concentration, racing thoughts, over eating, panic attacks, chest pain, muscle tension, poor hygiene, tearfulness, caregiver stress, loneliness, paranoia, and passive suicidal ideation. He denies any active intent or plan and denies homicidal ideations, or terrie. He is being referred back to [facility] for medication recommendations, symptom management, coping skill development. He is on BuSpar 15 mg b.i.d. and Cymbalta 120 mg q.day. The Cymbalta was increased at his last visit, and he thought this had helped his depression and pain, but now he reports little benefit. HPI: Quality & Associated Signs and Symptoms hopelessness/helpless, anxiety/panic attacks, racing thoughts, low motivation, overwhelmed, worthlessness, low energy, suicidal/self-harm thoughts ( Passive), isolative behavior, negative thoughts and irritability Evaluation of Sleep difficulty falling asleep, frequent awakening, early awakening and restlessness Past History Psychosocial Hx: patient grew up in [place]. denies any history of abuse or neglect, but said his family was poor. Overall he feels he had a good childhood. 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 Had to go on disability 2010 due to persistent atrial fibrillation. 25 years, no children Substance Use Hx: currently denies any alcohol use for the past 25 years, although he has admitted to drinking about a six-pack a week from PCP records. Used to drink heavily in the past, around 25-30 years ago, used to smoke, stopped smoking about 15 years ago, smoked for 15 years. Denies current marijuana use, denies illicit drug use Past Medical Hx: morbid obesity, chronic atrial fibrillation, CHF, cardiomyopathy, osteoarthritis, chronic pain, MARTIN, history of bladder cancer, dyslipidemia, gout, GERD, type 2 diabetes, COPD, herpes zoster, erectile dysfunction, colon polyps, hypertension, chronic antic Past Surgical Hx: oagulation left inguinal hernia repair x3, left ankle ORIF Past Psych Hx: as per HPI. Patient does suicide attempt by alcohol the early s. Father had Parkinson's but no other family history of psychiatric illness Review of Systems Review of Systems Constitutional Reports fatigue and other ( morbid obesity, dyslipidemia, [id number]) Eyes Reports WNL ENT Reports WNL Respiratory Reports other ( COPD, MARTIN) Cardiovascular Reports other ( CHF, cardiomyopathy, atrial fibrillation, HTN, chronic ant) Gastrointestinal Reports other ( GERD) Musculoskeletal Reports abnormal gait, Reports muscle stiffness and Reports other ( osteoarthritis, chronic pain) Neurologic Reports WNL Skin Reports WNL ADL's Reports WNL and Reports independent Exam Physical Exam Review of Lab Studies n/a Hygiene poor General Behavior/Attitude Toward Examiner pleasant and cooperative Pain Yes Pain Location generalized Pain Characteristics chronic and aching Psychiatric Exam Level of Consciousness alert Orientation person, place, time and situation Speech normal rate/tone/volume/prosody and coherent Language able to comprehend questions Mood depressed, anxious Affect full range, appropriate and congruent Thought Processes/Form logical, linear and goal directed Thought Content depressive and anxiety symptoms Delusions none Homicidal/Assaultive Ideation none Suicidal Ideation none Hallucinations none Attention/Concentration focused Attention/Concentration Testing Methods observation/interview Short Term Memory Impairment none STM Testing Methods clinical interview (assessment/observation) Beehive Kiln Supervisor Memory Impairment none LTM Testing Methods recall of biographical information Intellectual Functioning roughly average Intellectual Functioning Assessed By current events Insight fair Insight Assessed By ability to recognize & acknowledge mental illness, ability to understand the implications of mental illness, understanding of treatment options and ability to comply with treatment Judgement fair Judgement Assessed By exploring recent decision-making MMSE GDS 20, slums 27,zung 52/65 Patient Assets patient is willing to accept treatment, able to perform ADLs Patient Liabilities morbid obesity, chronic pain, caregiver stress Assessment and Plan Assessment and Plan Diagnosis F 33.2, major depressive disorder, recurrent, severe, with anxious distres Plan resume IOP. Supportive/ cognitive therapy. Will start Abilify 1 mg q.a.m. for antidepressant augmentation. Patient was advised as to risks of medication including dyslipidemia, hyperglycemia diabetes, neuroleptic malignant syndrome, TD Admission Overview Reason for Admission to Intensive Outpatient Program Impaired mood, depression, mood swings, patient would decompensate at a lower level of care, patient failed to benefit from lower level of care, not at baseline level of functioning, expectation of improvement w/continued treatment at this level of care and high risk for relapse Treatment To Be Provided medication management and group/individual/rec therapy Coordination of Care Education Provided diagnosis, psychoeducation and phychopharmacological education Coordination of Care Family Involvement yes Initial Discharge Disposition/Level of [facility] and PCP Medical Necessity GENERAL CRITERIA Pt demonstrates a willingness to participate in program at this level., There is a clear and reasonable expectation that pt will benefit and Pt has a current DSM Diagnosis that is appropriate for admission INCLUSION CRITERIA Pts symptoms are severe enough that: Current level of OP treatment is not effectively reducing symptoms. Level of Functioning Severe Impairment in Multiple Areas of Daily Life Psychiatric Symptoms Severe to Disabling Risk and Dangerousness Moderate Instability Commitment to Treatment and Program Limited Ability to Form a Long-Term Contract Social Support Limited Ability to form Relationships or Seek Supports Supporting Comments patient is experience symptoms of depression and anxiety sufficient amount, duration, and severity, as to impair functioning Certification Statement Certification Statement I believe this patient requires the services of the Intensive Outpatient Program and that there is reasonable expectation that the patient will make timely and significant practical improvement in the presenting acute symptoms as a result of this Intensive Outpatient Program. I do not believe this patient will benefit from a lesser level of care or could be adequately and appropriately treated in a less restrictive environment. My decision is based on the preceding clinical information. Initial Treatment Plan - IOP Initial Treatment Plan Reason for Admit patient is experiencing symptoms of depression anxieties sufficient in amount, duration, and severity as to impair functioning Reasons for Level of Care intense anxiety refractory to outpatient treatment, impaired social, familial, occupational functioning, need for structured therapeutic milieu and failure of less intensive treatment options LOC Explaination patient is on psychotropic medication and still symptomatic. Require psychotherapy Date Identified 04/15/24 Objective The patient will attend all behavioral health and medical appointments as scheduled within the first two weeks of admission to the program. Target Date 04/29/24 Plan of Intervention/Modality pharmacotherapy and psychotherapy Services to be provided by physician individual therapy and medication management Certification Statement I certify that this patient requires outpatient services, and services will be furnished under the supervision and care of a physician, and under an individual, written plan of treatment.
--- NOTE | 2024-04-15 14:20 | PC.NURSE ---
This nurse called and spoke to Naz at the [facility] pharmacy in [place] to order the patient Abilify 1mg PO Daily X 30 days.
[2024-04-19 10:14] VITALS: BP 127/88; PULSE 87; RESP 20; TEMP 36.4; O2SAT 98
[2024-04-21 10:13] VITALS: BP 134/72; PULSE 88; RESP 20; TEMP 36.3; O2SAT 97
--- NOTE | 2024-04-26 06:46 | PC.NURSE ---
No nursing group due to [employer] survey.
[2024-04-26 11:42] VITALS: BP 117/77; PULSE 80; RESP 22; TEMP 36.8; O2SAT 98
[2024-04-28 15:14] VITALS: BP 127/90; PULSE 84; RESP 20; TEMP 36.6; O2SAT 96
--- NOTE | 2024-04-28 15:14 | PC.NURSE ---
No nursing group due to nurse meeting
[2024-05-03 10:12] VITALS: BP 117/76; PULSE 82; RESP 20; TEMP 36.4; O2SAT 98
--- NOTE | 2024-05-06 09:27 | PC.NURSE ---
No nursing group due to MD visit.
[2024-05-06 10:22] VITALS: BP 140/80; PULSE 94; RESP 20; TEMP 36.2; O2SAT 98
--- NOTE | 2024-05-06 11:49 | P.PN_ITS ---
Progress HPI Progress HPI Visit Attended By patient and staff History Obtained From patient Chief Complaint 3 week Follow-up for depression/admissio n follow-up HPI this is a follow-up visit. At our last visit we started Abilify 1 mg q.a.m. and he says that he is experiencing significant improvement in his depression with no side effects. He is in the process of getting his house cleaned up so that he can tentatively bring his back home on 05/14. They are waiting for the home and family living professor to make a report so home health can become involved as well. Also on BuSpar 15 mg b.i.d. and Cymbalta 120 mg q.day. Enjoys the program and participates well. Average Number of Hours of Sleep 6 Sleep Quality difficulty falling asleep, frequent awakening and early awakening Change in PMFSH Releveant to Presenting Illness Yes Describe Changes in PMFSH Improvement as noted above Review of Systems Review of Systems Constitutional Reports fatigue and other ( morbid obesity, dyslipidemia, NIDDM) Eyes Reports WNL ENT Reports WNL Respiratory Reports other ( COPD, MARTIN) Cardiovascular Reports other ( CHF, cardiomyopathy, AFib, hypertension, HTN, chronic anticoagulation) Gastrointestinal Reports other ( GERD) Musculoskeletal Reports abnormal gait, Reports assistive device, Reports diminished strength, Reports muscle stiffness and Reports other ( osteoarthritis, chronic ) Neurologic Reports WNL Skin Reports WNL ADL's Reports WNL Exam Physical Exam Review of Lab Studies n/a Hygiene good General Behavior/Attitude Toward Examiner pleasant and cooperative Pain Yes Pain Location generalized Pain Characteristics chronic Psychiatric Exam Level of Consciousness alert Orientation person, place, time and situation Speech normal rate/tone/volume/prosody and coherent Language able to comprehend questions Mood less depressed Affect full range, appropriate and congruent Thought Processes/Form logical, linear and goal directed Thought Content diminished depressive symptoms Delusions none Homicidal/Assaultive Ideation none Suicidal Ideation none Hallucinations none Attention/Concentration focused Attention/Concentration Testing Methods observation/interview Short Term Memory Impairment none STM Testing Methods clinical interview (assessment/observation) Pathology Secretary/Transcriptionist Memory Impairment none LTM Testing Methods recall of biographical information Intellectual Functioning roughly average Intellectual Functioning Assessed By current events Insight fair and improving Insight Assessed By ability to recognize & acknowledge mental illness, ability to understand the implications of mental illness, understanding of treatment options and ability to comply with treatment Judgement fair and improving Judgement Assessed By exploring recent decision-making MMSE n/a Patient Assets patient is willing to accept treatment, able to perform ADLs Patient Liabilities morbid obesity, chronic pain, caregiver stress Assessment and Plan Clinical Impression/Diag Clinical Impression/Diagnosis F 33.2, improved, progressing well. Continue IOP. Monitor meds Progress Overview Reason for Continued Services in an Intensive Outpatient Program continued impaired mood and.or depression, patient would decompenste at a lower level of care, not at baseline level of functioning and high risk for relapse Treatment To Be Provided medication management Discharge Disposition/Level of Care PCP Anticipated Discharge 8-12 weeks Certification Statement Certification Statement I believe this patient requires the services of the [facility] Outpatient Program and that there is reasonable expectation that the patient will make timely and significant practical improvement in the presenting acute symptoms as a result of this Intensive Outpatient Program. I do not believe this patient will benefit from a lesser level of care or could be adequately and appropriately treated in a less restrictive environment. My decision is based on the preceding clinical information.
[2024-05-10 10:50] VITALS: BP 137/78; PULSE 86; RESP 20; TEMP 36.6; O2SAT 98
--- NOTE | 2024-05-12 07:33 | SLSTHERAPY ---
Voice mail received from Max canceling 05/12/2024 group attendance due to home inspection; Max confirmed intend to return to group 05/17/2024.
[2024-05-17 10:16] VITALS: BP 136/84; PULSE 82; RESP 20; TEMP 36.7; O2SAT 98
--- NOTE | 2024-05-19 08:34 | PC.NURSE ---
The patient called and reported that he spent most of the evening in the ER and has a bladder infection. He will not be attending his scheduled session today.
[2024-05-25 10:38] VITALS: BP 118/79; PULSE 90; RESP 20; TEMP 36.8; O2SAT 99
--- NOTE | 2024-05-25 11:12 | PC.NURSE ---
No nursing group due to nurse meeting.
--- NOTE | 2024-05-26 14:36 | SLSTHERAPY ---
Max canceled attendance for group 05/26/2024; he is scheduled to return to group 05/31/2024.
--- NOTE | 2024-05-31 08:44 | SLSTHERAPY ---
Phone call received from Max canceling 05/31/2024 group attendance due to weather; Max is scheduled to return to group & consult with JESS pro 06/03/2024.
--- NOTE | 2024-06-03 08:28 | PC.NURSE ---
The patient called and reported that he had his in the ER yesterday and will not be attending his scheduled session today only his doctor's appointment.
--- NOTE | 2024-06-07 13:54 | SLSTHERAPY ---
Phone call to Max following no-show for 06/07/2024 group attendance; Max reported inability to attend due to 's current medical condition & lack of home health services at this time; aMx agrees to contact [facility] staff 06/08/2024 regarding resuming or placing services on hold at this time.
--- NOTE | 2024-06-09 08:22 | SLSTHERAPY ---
Max canceled group attendance for 06/09/2024; he is scheduled to return to group 06/14/2024.
--- NOTE | 2024-06-10 12:33 | WPDSLSPROGRE ---
Progress HPI Progress HPI Visit Attended By patient and staff History Obtained From patient Chief Complaint follow-up for depression HPI this is a 5 week follow-up for depression. Patient has missed several appointments due to multiple issues mainly surrounding care of his , who is back at home. It sounds like that there finally able to have services set up including home health, PT, and OT. He hopes that these will fall into place within the next couple of weeks. Continues Abilify 1 mg q.a.m., Cymbalta 120 mg q.day, BuSpar 15 mg b.i.d.. Average Number of Hours of Sleep 6 Sleep Quality frequent awakening and early awakening Change in PMFSH Releveant to Presenting Illness No Review of Systems Review of Systems Constitutional Reports other ( Morbid obesity, dyslipidemia, and ID) Eyes Reports WNL ENT Reports WNL Respiratory Reports other ( COPD, MARTIN) Cardiovascular Reports other ( CHF, cardiomyopathy, AFib, hypertension, chronic anticoagulation) Gastrointestinal Reports other ( GERD) Musculoskeletal Reports abnormal gait, Reports diminished strength, Reports muscle stiffness and Reports other ( osteoarthritis, chronic pain) Neurologic Reports WNL Skin Reports WNL ADL's Reports WNL Exam Physical Exam Review of Lab Studies n/a Hygiene good General Behavior/Attitude Toward Examiner pleasant and cooperative Pain Yes Pain Location generalized Pain Characteristics chronic Psychiatric Exam Level of Consciousness alert Orientation person, place, time and situation Speech normal rate/tone/volume/prosody and coherent Language able to follow instructions or commands Mood less depressed Affect full range, appropriate and congruent Thought Processes/Form logical, linear and goal directed Thought Content diminished depressive symptoms Delusions none Homicidal/Assaultive Ideation none Suicidal Ideation none Hallucinations none Attention/Concentration focused Attention/Concentration Testing Methods observation/interview Short Term Memory Impairment none STM Testing Methods clinical interview (assessment/observation) Penitentiary Memory Impairment none LTM Testing Methods recall of biographical information Intellectual Functioning roughly average Intellectual Functioning Assessed By fund of knowledge Insight fair and improving Insight Assessed By ability to recognize & acknowledge mental illness, ability to understand the implications of mental illness, understanding of treatment options and ability to comply with treatment Judgement fair and improving Judgement Assessed By exploring recent decision-making MMSE n/a Patient Assets willing to accept treatment, able to perform ADLs Patient Liabilities morbid obesity, chronic pain, caregiver stress Assessment and Plan Clinical Impression/Diag Clinical Impression/Diagnosis F 33.2, improved, progressing well, continue IOP, monitor meds Progress Overview Reason for Continued Services in an Intensive Outpatient Program continued impaired mood and.or depression, patient would decompenste at a lower level of care, not at baseline level of functioning and high risk for relapse Treatment To Be Provided medication management and group/individual/rec therapy Discharge Disposition/Level of Care PCP Anticipated Discharge 8-12 weeks Certification Statement Certification Statement I believe this patient requires the services of the Intensive Outpatient Program and that there is reasonable expectation that the patient will make timely and significant practical improvement in the presenting acute symptoms as a result of this Intensive Outpatient Program. I do not believe this patient will benefit from a lesser level of care or could be adequately and appropriately treated in a less restrictive environment. My decision is based on the preceding clinical information.
--- NOTE | 2024-06-11 09:23 | PC.NURSE ---
This nurse called [facility] pharmacy and refilled the patient's Abilify and Duloxetine.
--- NOTE | 2024-06-17 13:24 | PC.NURSE ---
No nursing group due to MD visit.
--- NOTE | 2024-06-25 08:32 | SLSTHERAPY ---
Phone call to Max to confirm attendance for group 06/28/2024; Max confirms he is scheduled to attend.
--- NOTE | 2024-06-28 10:37 | PC.NURSE ---
No nursing group due to nurse meeting.
[2024-06-28 11:04] VITALS: BP 150/92; PULSE 88; RESP 20; TEMP 36.9; O2SAT 98
--- NOTE | 2024-07-01 15:27 | SLSTHERAPY ---
Max canceled 07/01/2024 group attendance due to illness.
--- NOTE | 2024-07-07 08:31 | SLSTHERAPY ---
Max's 07/05 & 07/07/2024 group attendance canceled due to snow; Max is scheduled to return to group & consult with doctor 07/08/2024.
--- NOTE | 2024-07-08 08:35 | PC.NURSE ---
The patient called this morning to cancel his doctor appointment and scheduled group day due to weather.
--- NOTE | 2024-07-14 13:33 | SLSTHERAPY ---
Max n0-showed/no-called for scheduled group attendance 07/14/2024; he is scheduled to return to group & consult with doctor 07/15/2024.
== END 2024-07-14 23:59 | disposition home or self-care (01) ==
LOC: CHSSENLIFE 10:00
PROVIDERS: PCP Internal Medicine; Visit Provider Psychiatry & Neurology Psychiatry
DX: F33.2 Major depressive disorder, recurrent severe without psychotic features (principal)
CPT/HCPCS: 90792; 90853; 99213; G0463

== ENCOUNTER 2024-12-17 13:30 | Outpatient (RCR) | payer MEDICARE, MEDICAID, SELFPAY ==
[2024-11-26 15:29] VITALS: BP 118/70; PULSE 73; RESP 16; O2SAT 96
== END 2025-01-18 10:05 | disposition home or self-care (01) ==
LOC: ANHCPREHAB 13:30
PROVIDERS: PCP Internal Medicine; Visit Provider Internal Medicine Pulmonary Disease
DX: J44.9 Chronic obstructive pulmonary disease, unspecified (principal)
CPT/HCPCS: 94625